=== PATIENT | male | born 1975 | race African-American/Black ===

== ENCOUNTER 2022-08-30 21:24 | Emergency (ER) | payer OTHER, SELFPAY ==
[2022-08-30] MEDS ORDERED: diphenhydrAMINE 25 MG CAP ONE (23:28)
[2022-08-30] MEDS ORDERED: Diazepam 5 MG TAB ONE (23:28)
[2022-08-30] MEDS ORDERED: Ketorolac Tromethamine 30 MG/ML VIAL ONE (23:29)
== END 2022-08-31 00:28 | disposition home or self-care (01) ==
LOC: CSHERS 21:24
DX: S16.1XXA Strain of muscle, fascia and tendon at neck level, initial encounter (principal); W22.09XA Striking against other stationary object, initial encounter
CPT/HCPCS: 72125; 96372; J1885

== ENCOUNTER 2025-04-16 09:24 | Outpatient (CLI) | payer OTHER | END 2025-04-16 09:25 | disposition home or self-care (01) | LOC: CSHSLEEP 09:24 | PROVIDERS: ATTEND Family Medicine | DX: G47.33 Obstructive sleep apnea (adult) (pediatric) (principal); G47.10 Hypersomnia, unspecified; E66.9 Obesity, unspecified; Z68.41 Body mass index [BMI] 40.0-44.9, adult; R06.83 Snoring; I10 Essential (primary) hypertension | CPT/HCPCS: 95811 ==